=== PATIENT | male | born 1950 | race Caucasian/White ===

== ENCOUNTER 2020-04-25 10:47 | Outpatient (REF) | payer MEDICARE, SELFPAY ==
[2020-04-25 12:09] LABS: Hematocrit 40.5 % (42-52); Hemoglobin 13.7 g/dl (14.0-18.0); Mean Corpuscular HGB Conc 33.8 g/dl (31.0-36.0); Mean Corpuscular Hemoglobin 29.9 pg (27.0-33.0); Mean Corpuscular Volume 88.4 fL (80-98); Mean Platelet Volume 10.2 fL (9.4-12.4); Platelet Count 198 X10*3/uL (160-400); Red Blood Count 4.58 X10*6/uL (4.60-5.80); Red Cell Distribution Width 12.5 % (11.0-16.0)
[2020-04-25 12:35] LABS: Alanine Aminotransferase 28 U/L (0-40); Albumin Level 4.3 g/dL (3.5-5.0); Alkaline Phosphatase 67 U/L (39-117); Anion Gap 11 (12-20); Aspartate Amino Transferase 24 U/L (5-37); Bilirubin Direct 0.4 mg/dL (0.0-0.5); Blood Urea Nitrogen 23 mg/dL (9-16); Carbon Dioxide 28 mmol/L (22-29); Chloride 104 mmol/L (96-108); Cholesterol 163 mg/dL; Estimated Glomerular Filt Rate > 60; Glucose Random 93 mg/dL (60-115); HDL Cholesterol 61 mg/dL; LDL Cholesterol Calculated 88 mg/dl; Potassium 4.7 mmol/l (3.3-5.1); Sodium 138 mmol/L (135-145); Total Protein 6.9 g/dL (6.5-8.0); Triglycerides 72 mg/dL
[2020-04-25 12:57] LABS: Thyroid Stimulating Hormone 2.22 mIU/mL (0.32-4.0); Vitamin D 25-OH Total 56.5 ng/mL (>30)
== END 2020-04-25 10:48 | disposition home or self-care (01) ==
LOC: HO.LAB 10:47
DX: E78.5 Hyperlipidemia, unspecified (principal); R53.83 Other fatigue; R06.02 Shortness of breath
CPT/HCPCS: 36415; 80053; 80061; 80076; 82248; 82306; 84439; 84443; 85027

== ENCOUNTER 2020-06-17 16:13 | Outpatient (REF) | payer MEDICARE, SELFPAY ==
[2020-06-17 17:08] LABS: Blood Urea Nitrogen 36 mg/dL (9-16); Estimated Glomerular Filt Rate > 60
== END 2020-06-17 16:14 | disposition home or self-care (01) ==
LOC: HO.LAB 16:13
PROVIDERS: Visit Provider Otolaryngology
DX: Z01.818 Encounter for other preprocedural examination (principal)
CPT/HCPCS: 82565; 84520